=== PATIENT | male | born 1955 | race Caucasian/White ===

== ENCOUNTER 2018-05-01 21:31 | Emergency (ER) | payer OTHER, SELFPAY ==
[2018-05-01 21:37] VITALS: BP 149/94; PULSE 54; RESP 18; TEMP 36.9; O2SAT 97; BMI 25.0
[2018-05-01 22:30] VITALS: BP 185/95; PULSE 56; O2SAT 99
[2018-05-01 22:48] VITALS: BP 160/91; PULSE 54; RESP 16; O2SAT 99
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
== END 2018-05-01 22:48 | disposition home or self-care (01) ==
PROVIDERS: Emergency Provider Emergency Medicine
DX: S01.01XA Laceration without foreign body of scalp, initial encounter (principal); V48.9XXA Unspecified car occupant injured in noncollision transport accident in traffic accident, initial encounter
CPT/HCPCS: 12001; 99282